=== PATIENT | female | born 1980 | race Caucasian/White ===

== ENCOUNTER 2017-03-02 22:12 | Emergency (ER) | payer MEDICAID ==
--- NOTE | 2017-03-02 22:42 | Emergency Department Record ---
History of Present Illness - General Chief complaint: Dental Stated complaint: DENTAL PAIN Time Seen by Provider: 03/02/17 22:40 Source: Patient Mode of Arrival: Ambulatory Limitations: No limitations - History of Present Illness Initial comments: The patient is here for dental pain for 3 days. She has a hx of dental issues and has had pain for 3 days. She denies any trouble swallowing, fever, or any obvious abscess. MD complaint: Tooth pain Onset/Timin -: Days(s) Quality: Aching Consistency: Constant Improves with: None Worsens with: None Context-Epistaxis: Aspirin use - Related Data Home Medications Medication Instructions Recorded Confirmed Last Taken Cholecalciferol (Vitamin D3) 5,000 unit PO WEEKLY 03/02/17 03/02/17 02/22/17 [Vitamin D3] Citalopram Hydrobromide [Celexa] 40 mg PO DAILY 03/02/17 03/02/17 03/02/17 Ferrous Sulfate [Iron] 325 mg PO BID 03/02/17 03/02/17 03/02/17 Previous Rx's Medication Instructions Recorded Amoxicillin [Amoxil] 500 mg PO TID #21 tab 03/02/17 Naproxen [Naprosyn] 250 mg PO BID #14 tablet 03/02/17 Allergies Allergy/AdvReac Type Severity Reaction Status Date / Time No Known Drug Allergies Allergy Verified 03/02/17 22:23 Travel Screening - Travel/Exposure Within Last 30 Days Have you traveled within the last 30 days?: No - Travel/Exposure Within Last Year Have you traveled outside the [place] in the last year?: No - Additonal Travel Details Have you been exposed to anyone with a communicable illness?: No - Travel Symptoms Symptom Screening: None Review of Systems Constitutional: Denies: Chills, Fever Eyes: Denies: Eye discharge ENT: Denies: Congestion Respiratory: Denies: Cough Past Medical History - SOCIAL HISTORY Smoking Status: Never smoker Alcohol Use: None Drug Use: None - RESPIRATORY Hx Respiratory Disorders: No - CARDIOVASCULAR Hx Cardio Disorders: No - NEURO Hx Neuro Disorders: No - GI Hx GI Disorders: No - Hx Genitourinary Disorders: No - ENDOCRINE Hx Endocrine Disorders: No - MUSCULOSKELETAL Hx Musculoskeletal Disorders: Yes Hx Arthritis: Yes Comment:: rheumatoid - PSYCH Hx Psych Problems: Yes Hx Anxiety: Yes - HEMATOLOGY/ONCOLOGY Hx Hematology/Oncology Disorders: Yes Hx Anemia: Yes Hx Blood Transfusions: Yes Hx Blood Transfusion Reaction: No Family Medical History Any Significant Family History?: No Physical Exam - General General Appearance: Alert, Oriented x3, Cooperative, No acute distress - Head Head exam: Atraumatic, Normocephalic, Normal inspection - Eye Eye exam: Normal appearance, PERRL - ENT ENT exam: Normal orophraynx, TM's normal bilaterally Teeth exam: Dental caries, Other (The patient has multiple missing teeth and dental caries with tooth tenderness diffusely to the R lower mandible and L upper maxillary area. There is no obvious abscess or gum line swelling.). negative: Normal inspection - Neck Neck exam: Normal inspection, Full ROM. negative: Lymphadenopathy, Meningismus , Tenderness - Respiratory Respiratory exam: Normal lung sounds bilaterally. negative: Respiratory distress - Cardiovascular Cardiovascular Exam: Regular rate, Normal rhythm, Normal heart sounds Course Vital Signs 03/02/17 22:14 Temperature 98.4 F Pulse Rate 70 Respiratory 16 Rate Blood Pressure 135/71 Pulse Ox 97 - Reevaluation(s) Reevaluation #1: I did explain to the patient that is appears she has a dental issue. She is to take the medicines and follow up at the dental clinic in [place] or [place]. 03/02/17 22:47 Disposition Disposition: Discharge Clinical Impression: Toothache Disposition: Home, Self-Care Condition: (1) Good Instructions: Toothache (ED) Additional Instructions: Please take the Amox. and Naprosyn as directed. Please see the Dentist in [place] next week. Prescriptions: Amoxicillin [Amoxil] 500 mg PO TID #21 tab Naproxen [Naprosyn] 250 mg PO BID #14 tablet Forms: Patient Portal Access Time of Disposition: 22:49
[2017-03-02] MEDS ORDERED: NAPROXEN 250 MG TABLET PO ONE (22:44)
[2017-03-02] MEDS ORDERED: AMOXICILLIN 500 MG TABLET PO ONE (22:44)
== END 2017-03-02 23:04 | disposition home or self-care (01) ==
LOC: ER 22:12
DX: K08.89 Other specified disorders of teeth and supporting structures (principal)
CPT/HCPCS: 99282

== ENCOUNTER 2019-03-03 20:16 | Emergency (ER) | payer SELFPAY ==
--- NOTE | 2019-03-03 20:40 | Emergency Department Record ---
History of Present Illness - General Chief Complaint: Shortness of breath Stated Complaint: ROSINA,SWELLING EXTREMITIES Time Seen by Provider: 03/03/19 20:34 Source: Patient Mode of Arrival: Ambulatory Limitations: No limitations - History of Present Illness Initial Comments: 38 yo female presents to ED for evaluation of diffuse swelling to the upper and lower extremities associated with difficulty in breathing. 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 Patient denies fevers, chills, or recent illness. Patient is concerned about "water retention", denies history of DVT, calf pain, or OCP use. MD Complaint: Shortness of breath Onset/Timin -: Days(s) Radiation: Other Severity scale (1-10): 7 Quality: Aching Consistency: Intermittent Improves With: Medication Worsens With: Exertion Associated Symptoms: Cough - Related Data Home Oxygen Therapy: No Home Medications Medication Instructions Recorded Confirmed Last Taken Paroxetine HCl [Paxil] 20 mg PO DAILY 03/03/19 03/03/19 03/03/19 Ropinirole HCl [Requip] 0.5 mg PO DAILY 03/03/19 03/03/19 03/02/19 Previous Rx's Medication Instructions Recorded Azithromycin [Zithromax] 250 mg PO DAILY #4 tab 03/03/19 Furosemide [Lasix] 20 mg PO BID #9 tablet 03/03/19 Allergies Allergy/AdvReac Type Severity Reaction Status Date / Time No Known Drug Allergies Allergy Verified 03/02/17 22:23 Travel Screening - Travel/Exposure Within Last 30 Days Have you traveled within the last 30 days?: No - Travel/Exposure Within Last Year Have you traveled outside the [place] in the last year?: No - Additonal Travel Details Have you been exposed to anyone with a communicable illness?: No - Travel Symptoms Symptom Screening: None Review of Systems Constitutional: Denies: Chills, Fever, Malaise, Night sweats Eyes: Denies: Eye discharge, Eye pain ENT: Denies: Congestion, Ear pain, Epistaxis Respiratory: Reports: Cough, Dyspnea Cardiovascular: Reports: Dyspnea on exertion, Edema. Denies: Chest pain, Palpitations Endocrine: Denies: Fatigue, Heat or cold intolerance Gastrointestinal: Denies: Abdominal pain, Nausea, Vomiting Genitourinary: Denies: Incontinence, Retention Musculoskeletal: Denies: Arthralgia, Back pain Skin: Denies: Bruising, Change in color Neurological: Denies: Abnormal gait, Confusion, Headache, Seizure Psychiatric: Denies: Anxiety Hematological/Lymphatic: Denies: Anemia, Blood Clots Past Medical History - SOCIAL HISTORY Smoking Status: Never smoker Alcohol Use: None Drug Use: Rare Drug Use Detail:: Marijuana - RESPIRATORY Hx Respiratory Disorders: No - CARDIOVASCULAR Hx Cardio Disorders: No - NEURO Hx Neuro Disorders: No - GI Hx GI Disorders: No - Hx Genitourinary Disorders: No - ENDOCRINE Hx Endocrine Disorders: No - MUSCULOSKELETAL Hx Musculoskeletal Disorders: Yes Hx Arthritis: Yes Comment:: rheumatoid - PSYCH Hx Psych Problems: Yes Hx Anxiety: Yes - HEMATOLOGY/ONCOLOGY Hx Hematology/Oncology Disorders: Yes Hx Anemia: Yes Hx Blood Transfusions: Yes (2013) Hx Blood Transfusion Reaction: No Family Medical History Any Significant Family History?: Yes Hx Diabetes: Father Hx Heart Disease: Father, Brother/Sister Hx HTN: Father, Brother/Sister Hx Kidney Disease: Father Hx Seizures: Father Physical Exam - General General Appearance: Alert, Oriented x3, Cooperative, Mild distress Limitations: No limitations - Head Head exam: Atraumatic, Normocephalic, Normal inspection Head exam detail: negative: Abrasion, Contusion, Sears's sign, General tenderness, Hematoma, Laceration - Eye Eye exam: Normal appearance. negative: Conjunctival injection, Periorbital swelling, Periorbital tenderness, Scleral icterus - ENT Ear exam: negative: Auricular hematoma, Auricular trauma Nasal Exam: negative: Active bleeding, Discharge, Dried blood, Foreign body Mouth exam: negative: Drooling, Laceration, Muffled voice, Tongue elevation - Neck Neck exam: Normal inspection. negative: Meningismus, Tenderness - Respiratory Respiratory exam: Normal lung sounds bilaterally. negative: Rales, Respiratory distress, Rhonchi, Stridor - Cardiovascular Cardiovascular Exam: Regular rate, Normal rhythm, Normal heart sounds - GI/Abdominal GI/Abdominal exam: Soft. negative: Rebound, Rigid, Tenderness - Rectal Rectal exam: Deferred - exam: Deferred - Extremities Extremities exam: Normal inspection, Pedal edema. negative: Tenderness - Back Back exam: Denies: CVA tenderness (R), CVA tenderness (L) - Neurological Neurological exam: Alert, Normal gait, Oriented X3 - Psychiatric Psychiatric exam: Normal affect, Normal mood - Skin Skin exam: Normal color. negative: Abrasion Type of lesion: negative: abrasion Course Vital Signs 03/03/19 20:20 Temperature 98.0 F Pulse Rate 85 Respiratory 24 Rate Blood Pressure 147/64 Pulse Ox 95 - Reevaluation(s) Reevaluation #1: 03/03/19 20:35 EKG: NSR 82 Normal axis, normal intervals No acute ST-T wave changes Reevaluation #2: 03/03/19 21:03 Laboratory studies were reviewed and are grossly unremarkable for an acute process except for: Hgb: 9.4 WBC: 12.6 BNP 642 Reevaluation #3: 03/03/19 21:07 CXR: Heart size/pulmonary vasculature are at the upper limits of normal Atelectasis vs. infiltrate left base Patient was updated on all results, BNP level does not appear c/w acute CHF. Patient would also prefer a short course of lasix for her edema, will administer Lasix 20 mg BID for 5 days as well. Will treat for possible CAP with Zithromax, appears stable for discharge at this time. Medical Decision Making - Lab Data Result diagrams: 03/03/19 20:28 03/03/19 20:28 Disposition Disposition: Discharge Clinical Impression: CAP (community acquired pneumonia) Qualifiers: Laterality: left Lung location: lower lobe of lung Qualified Code(s): J18.1 - Lobar pneumonia, unspecified organism Disposition: Home, Self-Care Condition: (2) Stable Instructions: Community Acquired Pneumonia (ED) Additional Instructions: Return to ED if your symptoms worsen or if you have any concerns. Zithromax and Lasix as directed. Follow-up with your family doctor in 3-5 days as directed. Prescriptions: Azithromycin [Zithromax] 250 mg PO DAILY #4 tab Furosemide [Lasix] 20 mg PO BID #9 tablet Forms: Patient Portal Access Time of Disposition: 21:10 Quality - Quality Measures Quality Measures: N/A - Blood Pressure Screening Does Patient Have Any of the Following: No Blood Pressure Classification: Hypertensive Reading Systolic Measurement: 147 Diastolic Measurement: 64 Screening for High Blood Pressure: < First Hypertensive BP, F/U Documented > [ [id number]] First Hypertensive Follow-up Interventions: Referral to alternative/primary care provider.
[2019-03-03 20:42] LABS: BASO % 0.4 % (0-6); EOS % 3.2 % (0-6); GRAN % 66.7 % (47-80); HEMATOCRIT 32.4 % (35.0-47.0); HEMOGLOBIN 9.4 gm/dl (11.6-16.0); LYMPH % 22.4 % (16-45); MEAN CELL VOLUME 76.6 fl (81-97); MEAN CORPUSCULAR HEMOGLOBIN 22.2 pg (27-33); MEAN PLATELET VOLUME 9.9 fl (7.4-10.4); MONO % 7.3 % (0-9); PLATELET COUNT 398 K/uL (130-400); RED BLOOD COUNT 4.23 M/uL (3.80-5.40); RED CELL DISTRIBUTION WIDTH 20.6 % (11.5-14.5); WHITE BLOOD COUNT W/O DIFF 12.6 K/uL (4.2-12.2)
[2019-03-03 20:51] LABS: BLOOD UREA NITROGEN 16 mg/dL (6-20); CREATININE 0.8 mg/dL (0.5-0.9); EST GLOMERULAR FILTRATION RATE > 60 mL/min
[2019-03-03 20:52] LABS: TOTAL PROTEIN 8.6 g/dL (6.6-8.7)
[2019-03-03 20:54] LABS: GLUCOSE,RANDOM 114 mg/dL (74-109)
[2019-03-03 20:57] LABS: ALB/GLOB RATIO 0.9 (1.1-1.8); ALKALINE PHOSPHATASE 108 U/L (35-104); ALT/SGPT 73 U/L (<33); AST/SGOT 28 U/L (10.0-35.0)
[2019-03-03] MEDS ORDERED: FUROSEMIDE 20 MG TABLET PO ONE (21:13)
[2019-03-03] MEDS ORDERED: AZITHROMYCIN 500 MG TABLET PO ONE (21:13)
== END 2019-03-03 21:35 | disposition home or self-care (01) ==
LOC: ER 20:16
DX: J18.1 Lobar pneumonia, unspecified organism (principal); R06.02 Shortness of breath
CPT/HCPCS: 71046; 80053; 83880; 84484; 85025; 93005; 93010; 99284